=== PATIENT | female | born 1960 | race Caucasian/White ===

== ENCOUNTER → 2021-07-29 | Outpatient (CLI) | payer OTHER ==
[~2021-07-29] MED LIST: ADMELOG SO100 UNIT/1 SQ; CRESTOR40 MG PO; ECOTRIN325 MG PO; ESTRODIL; LANTUS SOL100 UNIT/1 SQ; LIPOFEN150 MG PO; LISINOPRIL-HCT1 EAC2 PO; MUCINEX DM ER1 EACH PO; PREMARIN1.25 MG PO; PROGESTERONE200 MG PO; PROTONIX20 MG PO; SINGULAIR10 MG PO; SYNJARDY PO; ZYRTEC10 MG PO
[2021-07-29 10:15] LABS: HEMOGLOBIN 14.7 gm/dl (12.3-15.3); RED BLOOD COUNT 4.95 M/UL (4.00-5.10); WHITE BLOOD COUNT 7.3 K/UL (4.5-11.0)
[2021-07-29 10:37] LABS: BUN/CREATININE RATIO 30 (0-10)
== END ==
LOC: OPSV2 09:00
PROVIDERS: Obstetrics & Gynecology
DX: Z01.818 Encounter for other preprocedural examination (principal); I10 Essential (primary) hypertension; E11.9 Type 2 diabetes mellitus without complications; N90.1 Moderate vulvar dysplasia; R94.31 Abnormal electrocardiogram [ECG] [EKG]
CPT/HCPCS: 36415; 71046; 80053; 81001; 85025; 93005

== ENCOUNTER → 2021-08-01 | Day surgery (SDC) | payer OTHER ==
[~2021-08-01] MED LIST changes: +ANAPROX DS550 MG PO; +HYDROCODON-ACE1 EAC2 PO; +ZOFRAN 4 MG TAB4 MG PO
== END | disposition home or self-care (01) ==
LOC: OR 05:24
DX: N90.1 Moderate vulvar dysplasia (principal); I10 Essential (primary) hypertension; E78.2 Mixed hyperlipidemia; J45.909 Unspecified asthma, uncomplicated; K21.9 Gastro-esophageal reflux disease without esophagitis; M19.90 Unspecified osteoarthritis, unspecified site; E11.9 Type 2 diabetes mellitus without complications; F41.9 Anxiety disorder, unspecified; Z88.8 Allergy status to other drugs, medicaments and biological substances; Z79.82 Long term (current) use of aspirin; Z79.4 Long term (current) use of insulin; Z79.899 Other long term (current) drug therapy; Z80.1 Family history of malignant neoplasm of trachea, bronchus and lung
CPT/HCPCS: 82962; J0690; J1100; J1885; J2001; J2250; J2405; J2704; J2795; J3010; J7030; J7120